=== PATIENT | male | born 1940 | race Caucasian/White ===

== ENCOUNTER 2017-02-18 12:51 | Emergency (ER) | payer OTHER ==
[~2017-02-18] VITALS: Ht 172.7 cm; Wt 98.5 kg
[~2017-02-18 12:51] MED LIST: ADVAIR 250/501 DISK IH; Advair 250/50 Diskus IH; DOXYCYCLINE HY100 MG PO; FOLVITE1 M1 PO; LITE COAT ASPI325 M1 PO; LOPRESSOR50 MG PO; Levaquin PO; PREDNISONE10 MG PO; PREDNISONE20 MG PO; PROAIR HFA8.5 GM IH; PROVENTIL,2.5 MG/0.5 IH; PROVENTIL,2.5 MG/3 M IH; Vitamin B-12 IM; ZITHROMAX Z-PA250 MG PO
[2017-02-18 13:18] LABS: ADD MIUA? YES; BILIRUBIN NEGATIVE; BLOOD NEGATIVE; COLOR YELLOW ((YELLOW)); GLUCOSE (STRIP) NEGATIVE; KETONES NEGATIVE; LEUKOCYTES LARGE; NITRITE NEGATIVE; PROTEIN (STRIP) NEGATIVE; UROBILINOGEN 0.2 MG/DL (0.2-1.0)
[2017-02-18 13:26] LABS: BACTERIA RARE /HPF; EPITHELIAL CELLS RARE /HPF; MUCUS TRACE /LPF; RED BLOOD CELLS 0-5 /HPF (0-5)
[2017-02-18 16:23] VITALS: BP 122/70
== END 2017-02-18 16:24 ==
LOC: EME 12:51
PROVIDERS: Emergency Medicine
DX: F32.9 Major depressive disorder, single episode, unspecified (principal); F43.23 Adjustment disorder with mixed anxiety and depressed mood; J44.9 Chronic obstructive pulmonary disease, unspecified; J45.909 Unspecified asthma, uncomplicated; I10 Essential (primary) hypertension; Z79.82 Long term (current) use of aspirin; Z87.891 Personal history of nicotine dependence
CPT/HCPCS: 80048; 81003; 85025; 90837; 99281; 99284